=== PATIENT | female | born 1965 | race Two or more races ===

== ENCOUNTER 2022-06-17 10:31 | Emergency (ER) | payer MEDICAID ==
[~2022-06-17] VITALS: Ht 152.4 cm; Wt 57.7 kg
[2022-06-17 10:44] VITALS: BP 159/90
[2022-06-17] MEDS ORDERED: cefTRIAXone SOD 1,000 MG VL IM ONE (11:15)
[2022-06-17] MEDS ORDERED: CLIN300C8 PO (11:17)
[2022-06-17] MEDS ORDERED: MAGN400S25 PO (11:17)
== END 2022-06-17 11:40 | disposition home or self-care (01) ==
LOC: ER 10:31
DX: L03.211 Cellulitis of face (principal); I10 Essential (primary) hypertension; Z88.1 Allergy status to other antibiotic agents
CPT/HCPCS: 96372; 99283; J0696

== ENCOUNTER 2022-06-23 18:53 | Emergency (ER) | payer MEDICAID ==
[~2022-06-23] VITALS: Ht 154.9 cm; Wt 61.0 kg
[~2022-06-23 18:53] MED LIST: CLIN300C8 PO; MAGN400S25 PO
[2022-06-23 19:10] VITALS: BP 166/109
[2022-06-23] MEDS ORDERED: ASPirin 81 mg TAB PO ONE (19:15)
[2022-06-23 19:27] LABS: Basophils # (auto) 0 10 ^3/uL (0-0.2); Basophils % (auto) 0.9 % (0.0-2.0); Eosinophils # (auto) 0.4 10 ^3/uL (0-0.8); Eosinophils % (auto) 7.5 % (0.0-7.0); Hematocrit 41.8 % (36.0-46.0); Hemoglobin 14.6 g/dL (12.2-16.2); Lymphocytes % (auto) 41.9 % (10.0-50.0); Mean Corpuscular Hemoglobin 32.9 pg (28.0-32.0); Mean Corpuscular Hgb Conc. 34.9 g/dL (32.0-36.0); Mean Corpuscular Volume 94.4 fL (80.0-100.0); Monocytes # (auto) 0.4 10 ^3/uL (0-1.3); Monocytes % (auto) 7.9 % (0.0-12.0); Neutrophils % (auto) 41.8 % (37.0-80.0); Nucleated Red Blood Cells % 0.5 %; Red Blood Cells 4.43 10^6/uL (4.0-5.20); Red Cell Distribution Width 12.4 % (11.8-14.3); White Blood Cell 4.8 10^3/uL (4.4-10.8)
[2022-06-23 19:45] LABS: Albumin 3.7 g/dL (3.4-5.0); Magnesium 2.4 mg/dL (1.6-2.6); Potassium 3.7 mmol/L (3.5-5.1)
[2022-06-23 19:49] LABS: BUN/Creatinine Ratio 18.8; Bilirubin, Total 0.4 mg/dL (0.2-1.0); Total Protein 7.9 g/dL (6.4-8.2)
== END 2022-06-24 20:33 | disposition left against medical advice (07) ==
LOC: ER 18:55
DX: R07.89 Other chest pain (principal); E11.9 Type 2 diabetes mellitus without complications; E78.5 Hyperlipidemia, unspecified; I10 Essential (primary) hypertension; F17.210 Nicotine dependence, cigarettes, uncomplicated
CPT/HCPCS: 36415; 80053; 83735; 84484; 85025; 85379; 93005

== ENCOUNTER 2022-11-05 12:12 | Emergency (ER) | payer MEDICAID ==
[~2022-11-05] VITALS: Ht 154.9 cm; Wt 58.4 kg
[~2022-11-05 12:12] MED LIST changes: +CLIN300C70 PO; -CLIN300C8 PO
[2022-11-05] MEDS ORDERED: ASPI1TAB20 PO (15:07)
[2022-11-05 15:32] VITALS: BP 150/90
== END 2022-11-05 15:35 | disposition home or self-care (01) ==
LOC: ER 12:12
DX: F41.0 Panic disorder [episodic paroxysmal anxiety] (principal); I10 Essential (primary) hypertension; F32.9 Major depressive disorder, single episode, unspecified; E78.5 Hyperlipidemia, unspecified; F17.210 Nicotine dependence, cigarettes, uncomplicated
CPT/HCPCS: 93005

== ENCOUNTER 2022-11-26 19:54 | Emergency (ER) | payer MEDICAID ==
[~2022-11-26] VITALS: Ht 157.5 cm; Wt 72.7 kg
[~2022-11-26 19:54] MED LIST changes: +ASPI1TAB20 PO
[2022-11-26 20:07] VITALS: BP 155/97
== END 2022-11-27 01:00 | disposition left against medical advice (07) ==
LOC: ER 19:54
DX: H92.02 Otalgia, left ear (principal); Z53.21 Procedure and treatment not carried out due to patient leaving prior to being seen by health care provider

== ENCOUNTER 2023-01-16 14:03 | Emergency (ER) | payer MEDICAID ==
[~2023-01-16] VITALS: Ht 165.1 cm; Wt 57.8 kg
[~2023-01-16 14:03] MED LIST changes: -ASPI1TAB20 PO
[2023-01-16 14:38] VITALS: BP 136/85; PULSE 94; RESP 16; TEMP 98.2; O2SAT 100
[2023-01-16] MEDS ORDERED: IBUP-1454 PO (15:33)
[2023-01-16] MEDS ORDERED: AMOX875T3 PO (15:33)
== END 2023-01-16 15:45 | disposition home or self-care (01) ==
LOC: ER 14:03
DX: H61.22 Impacted cerumen, left ear (principal); H66.92 Otitis media, unspecified, left ear; I10 Essential (primary) hypertension; F32.9 Major depressive disorder, single episode, unspecified; E78.5 Hyperlipidemia, unspecified; F17.210 Nicotine dependence, cigarettes, uncomplicated; Z79.1 Long term (current) use of non-steroidal anti-inflammatories (NSAID); Z79.899 Other long term (current) drug therapy
CPT/HCPCS: 69209

== ENCOUNTER 2023-04-09 09:04 | Emergency (ER) | payer MEDICAID ==
[~2023-04-09] VITALS: Ht 165.1 cm; Wt 72.3 kg
[~2023-04-09 09:04] MED LIST changes: +AMOX875T3 PO; +IBUP-1454 PO
[2023-04-09 10:46] LABS: Basophils # (auto) 0 10 ^3/uL (0-0.2); Eosinophils # (auto) 0.1 10 ^3/uL (0-0.8); Hemoglobin 14.4 g/dL (12.2-16.2); Lymphocytes # (auto) 0.8 10 ^3/uL (0.4-5.4); Monocytes # (auto) 0.3 10 ^3/uL (0-1.3); Neutrophils # (auto) 2.9 10 ^3/uL (1.6-8.6)
[2023-04-09 10:48] LABS: Alanine Aminotransferase 49 U/L (7-40); Albumin 4.1 g/dL (3.2-4.8); Alkaline Phosphatase 168 U/L (46-116); Anion Gap 7 (5-15); Aspartate Aminotransferase 84 U/L (13-40); BUN/Creatinine Ratio 14.9 (10.0-20.0); Blood Urea Nitrogen 11 mg/dL (9-23); Calcium 9.2 mg/dL (8.7-10.4); Carbon Dioxide 25 mmol/L (20-30); Chloride 105 mmol/L (98-107); Glucose 97 mg/dL (74-106); Lipase 242 U/L (12-53); Magnesium 1.6 mg/dL (1.6-2.6); Potassium 3.4 mmol/L (3.5-5.1); Sodium 137 mmol/L (136-145)
[2023-04-09 10:49] LABS: Basophils % (auto) 0.5 % (0.0-2.0); Bilirubin, Total 0.8 mg/dL (0.2-1.0); Eosinophils % (auto) 2.5 % (0.0-7.0); Hematocrit 41.7 % (36.0-46.0); Lymphocytes % (auto) 19.4 % (10.0-50.0); Mean Corpuscular Hemoglobin 34.4 pg (28.0-32.0); Mean Corpuscular Hgb Conc. 34.6 g/dL (32.0-36.0); Mean Corpuscular Volume 99.3 fL (80.0-100.0); Monocytes % (auto) 6.4 % (0.0-12.0); Neutrophils % (auto) 71.2 % (37.0-80.0); Red Cell Distribution Width 12.2 % (11.8-14.3); Total Protein 7.1 g/dL (5.7-8.2)
[2023-04-09 10:57] LABS: INR 1.05 (0.9-1.15)
[2023-04-09 11:00] VITALS: BP 152/90; PULSE 77; RESP 16; TEMP 97.4; O2SAT 100
[2023-04-09] MEDS ORDERED: NAPR-1334 PO (11:16)
== END 2023-04-09 11:45 | disposition home or self-care (01) ==
LOC: ER 09:04 → EDBD 09:04 → ER 11:45
DX: S30.0XXA Contusion of lower back and pelvis, initial encounter (principal); S20.20XA Contusion of thorax, unspecified, initial encounter; I10 Essential (primary) hypertension; E78.5 Hyperlipidemia, unspecified; F17.210 Nicotine dependence, cigarettes, uncomplicated; V03.99XA Pedestrian with other conveyance injured in collision with car, pick-up truck or van, unspecified whether traffic or nontraffic accident, initial encounter; Y93.89 Activity, other specified; Y92.89 Other specified places as the place of occurrence of the external cause; Y99.8 Other external cause status
CPT/HCPCS: 36415; 70450; 72125; 72128; 72131; 74176; 80053; 83690; 83735; 85025; 85610

== ENCOUNTER 2023-12-22 13:00 | Emergency (ER) | payer SELFPAY ==
[~2023-12-22] VITALS: Ht 157.5 cm; Wt 68.2 kg
[~2023-12-22 13:00] MED LIST changes: +CLIN1CAP70 PO; -CLIN300C70 PO; +NAPR-1335 PO
[2023-12-22 14:24] LABS: Basophils # (auto) 0.1 10 ^3/uL (0-0.2); Eosinophils # (auto) 0.2 10 ^3/uL (0-0.8); Eosinophils % (auto) 3.9 % (0.0-7.0); Hemoglobin 14.6 g/dL (12.2-16.2); Lymphocytes # (auto) 1.5 10 ^3/uL (0.4-5.4); Monocytes # (auto) 0.3 10 ^3/uL (0-1.3); White Blood Cell 4.3 10^3/uL (4.4-10.8)
[2023-12-22 14:26] LABS: Basophils % (auto) 1.3 % (0.0-2.0); Hematocrit 41.3 % (36.0-46.0); Lymphocytes % (auto) 34.2 % (10.0-50.0); Mean Corpuscular Hemoglobin 35.2 pg (28.0-32.0); Mean Corpuscular Hgb Conc. 35.4 g/dL (32.0-36.0); Mean Corpuscular Volume 99.4 fL (80.0-100.0); Monocytes % (auto) 7.9 % (0.0-12.0); Neutrophils # (auto) 2.2 10 ^3/uL (1.6-8.6); Neutrophils % (auto) 52.7 % (37.0-80.0); Nucleated Red Blood Cells % 0.1 %; Red Blood Cells 4.16 10^6/uL (4.0-5.20); Red Cell Distribution Width 13.2 % (11.8-14.3)
[2023-12-22 14:32] LABS: Chloride 109 mmol/L (98-107); Potassium 3.5 mmol/L (3.5-5.1); Sodium 139 mmol/L (136-145)
[2023-12-22 14:33] LABS: Anion Gap 10 (5-15); Carbon Dioxide 20 mmol/L (20-30)
[2023-12-22 14:34] LABS: Calcium 9.1 mg/dL (8.7-10.4)
[2023-12-22 14:38] LABS: Glucose 90 mg/dL (74-106)
[2023-12-22 14:39] LABS: BUN/Creatinine Ratio 23.7 (10.0-20.0); Blood Urea Nitrogen 18 mg/dL (9-23)
[2023-12-22] MEDS: SODIUM CHLORIDE 0.9% 500 ML IV ONE (15:00)
[2023-12-22] MEDS: chlordiazePOXIDE HCL 5 MG CAP PO ONE (15:01)
[2023-12-22 15:15] VITALS: BP 118/70; PULSE 76; RESP 15; TEMP 97; O2SAT 97
[2023-12-22] MEDS ORDERED: FOLIC ACID 1 MG, MAGNESIUM SULF SDV 50% 8 MEQ, MULTIPLE VITAMIN 10 ML, THIAMINE INJ 100... INJ SCH (18:00)
== END 2023-12-24 07:56 | disposition left against medical advice (07) ==
LOC: ER 13:00 → EDBD 13:00 → ER 12-24 07:56
DX: F10.139 Alcohol abuse with withdrawal, unspecified (principal); E78.5 Hyperlipidemia, unspecified; I10 Essential (primary) hypertension; F17.210 Nicotine dependence, cigarettes, uncomplicated; Z79.899 Other long term (current) drug therapy; Z79.1 Long term (current) use of non-steroidal anti-inflammatories (NSAID); Y90.1 Blood alcohol level of 20-39 mg/100 ml
CPT/HCPCS: 36415; 80048; 84484; 85025; 96360; 99284; J7040

== ENCOUNTER 2024-05-24 14:15 | Emergency (ER) | payer MEDICAID ==
[~2024-05-24] VITALS: Ht 154.9 cm; Wt 54.5 kg
[2024-05-24 14:35] VITALS: BP 142/80; PULSE 110; RESP 18; O2SAT 96
== END 2024-05-24 17:04 | disposition left against medical advice (07) ==
LOC: ER 14:15
DX: F41.0 Panic disorder [episodic paroxysmal anxiety] (principal); F41.9 Anxiety disorder, unspecified; Z53.21 Procedure and treatment not carried out due to patient leaving prior to being seen by health care provider

== ENCOUNTER 2024-10-27 14:34 | Emergency (ER) | payer MEDICAID ==
[~2024-10-27] VITALS: Ht 152.4 cm; Wt 54.6 kg
[2024-10-27 14:46] VITALS: BP 148/87; PULSE 90; RESP 18; TEMP 97.5; O2SAT 97
--- NOTE | 2024-10-27 15:22 | ED.PDOC ---
History of Present Illness HPI Comments 58-year-old female presents with a chief complaint of anxiety and memory issues. Patient states that she does methamphetamine and since using that she has been having anxiety and memory issues. Patient has no pain at this time. Patient denies any other symptoms at this time. Chief Complaint: Anxiety Time Seen by MD: 15:12 Primary Care Provider: GALI Rosen Notes: Nurses Notes, Medications, Allergies Allergies: Coded Allergies: NO KNOWN ALLERGIES (Unverified , 06/17/22) Home Meds Active Scripts Naproxen Sodium (Naproxen) 220 Mg Tab, 220 MG PO BID for 7 Days, #14 TAB Prov:MIGUEL ÁNGEL MONROE MD 04/09/23 Ibuprofen (Ibuprofen) 600 Mg Tab, 1 TAB PO TID, #30 TAB Prov:KELLEE BAILEY 01/16/23 Amoxicillin Trihydrate (Amoxicillin) 875 Mg Tab, 1 TAB PO BID, #20 TAB Prov:KELLEE BAILEY 01/16/23 Magnesium Hydroxide (Milk Of Magnesia) 400 Mg/5 Ml Racheal, 400 MG PO DAILY PRN, #769 ML 0 Refills Prov:MARJ HERNANDEZ [facility] 06/17/22 Clindamycin Hcl (Clindamycin Hcl) 300 Mg Cap, 1 CAP PO TID for 7 Days, #21 CAP 0 Refills Prov:MARJ HERNANDEZ 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 Family History Family History: Reviewed,noncontributory to illness, No family hx of Cancer, No family hx of DM, No family hx of Heart bere Social History Smoker: Cigarettes Alcohol: Heavy Drugs: Methamphetamine Lives In: Home Constitutional: denies: chills, diaphoresis, fatigue, fever, malaise, sweats, weakness, others EENTM: denies: blurred vision, double vision, ear bleeding, ear discharge, ear drainage, ear pain, ear ringing, eye pain, eye redness, hearing loss, mouth pain, mouth swelling, nasal discharge, nose bleeding, nose congestion, nose pain, photophobia, tearing, throat pain, throat swelling, voice changes, others Respiratory: denies: cough, hemoptysis, orthopnea, SOB at rest, shortness of breath, SOB with excertion, stridor, wheezing, others Cardiovascular: denies: chest pain, dizzy spells, diaphoresis, Dyspnea on exertion, edema, irregular heart beat, left arm pain, lightheadedness, palpitations, PND, syncope, others Gastrointestinal: denies: abdomen distended, abdominal pain, blood streaked bowels, constipated, diarrhea, dysphagia, difficulty swallowing, hematemesis, melena, nausea, poor appetite, poor fluid intake, rectal bleeding, rectal pain, vomiting, others Genitourinary: denies: abnormal vagina bleeding, burning, dyspareunia, dysuria, flank pain, frequency, hematuria, incontinence, pain, , vagina discharge, urgency, others Neurological: denies: dizziness, fainting, headache, left sided numbness, left sided weakness, numbness, paresthesia, pre-existing deficit, right sided numbness, right sided weakness, seizure, speech problems, tingling, tremors, weakness, others Musculoskeletal: denies: back pain, gout, joint pain, joint swelling, muscle pain, muscle stiffness, neck pain, others Integumetry: denies: bruises, change in color, change in hair/nails, dryness, laceration, lesions, lumps, rash, wounds, others Allergic/Immunocompromised: denies: Difficulty Healing, Frequent Infections, Hives, Itching, others Hematologic/Lymphatic: denies: anemia, blood clots, easy bleeding, easy bruising, swollen glands, others Endocrine: denies: excessive hunger, excessive sweating, excessive thirst, excessive urination, flushing, intolerance to cold, intolerance to heat, unex plained weight gain, unexplained weight loss, others Psychiatric: reports: anxiety; denies: bipolar disorder, depression, hopeless, panic disorder, schizophrenia, sleepless, suicidal, others All Other Systems: Reviewed and Negative Physical Exam General Appearance: No Apparent Distress HEENT: Normal ENT Inspection, Pharynx Normal, TMs Normal Neck: Full Range of Motion, Non-Tender, Normal, Normal Inspection Respiratory: Chest Non-Tender, Lungs Clear, No Accessory Muscle Use, No Respiratory Distress, Normal Breath Sounds Cardiovascular: No Edema, No JVD, No Murmur, No Gallop, Normal Peripheral Pulses, Regular Rate/Rhythm Breast Exam: Deferred Gastrointestinal: No Organomegaly, Non Tender, No Pulsatile Mass, Normal Bowel Sounds, Soft Genitalia: Deferred Pelvic: Deferred Rectal: Deferred Extremities: No calf tenderness, Normal capillary refill, Normal inspection, Normal range of motion, Non-tender, No pedal edema Musculoskeletal : Apperance: Normal Neurologic: Alert, braille typist II-XII nml as Tested, No Motor Deficits, No Sensory Deficits, Other (The patient is anxious and admits to using methamphetamines) Cerebellar Function: Normal Reflexes: Normal Skin: Dry, Normal Color, Warm Lymphatic: No Adenopathy Was a procedure done? Was a procedure done?: No Differential Dx Considerations may include: Acute anxiety, substance abuse X-Ray, Labs, Meds, VS Vital Signs Date Time Temp Pulse Resp B/P (MAP) Pulse Ox O2 Delivery O2 Flow Rate FiO2 10/27/24 14:46 97.5 90 18 148/87 (107) 97 97.5 The patient will be discharged The patient will follow up with the primary care doctor The patient will return to the emergency department's condition worsens. Time of 1ST Reevaluation: 15:42 Reevaluation 1ST: Unchanged Patient Education/Counseling: Diagnosis, Treatment, Prognosis, Need For Follow Up Family Education/Counseling: No Family Present Departure 1 Departure Time of Disposition: 16:35 Impression: Primary Impression: Alcohol abuse Additional Impressions: Methamphetamine use Acute anxiety Disposition: 01 HOME / SELF CARE / HOMELESS Condition: Fair Discharged With: Self Critical Care Note Critical Care Time?: No Stability Stability form required: No Heart Score Heart Score: Heart Score Response (Comments) Value History N/A 0 EKG N/A 0 Age N/A 0 Risk Factors N/A 0 Troponin N/A 0 Total 0 I personally scribed for CONTRERAS WOLFE MD ([email or web address]) on 10/27/24 at 15:21. Electronically submitted by Gunnar Arteaga ([email or web address]). CONTRERAS WOLFE MD October 27, 2024 15:21
== END 2024-10-27 17:38 | disposition home or self-care (01) ==
LOC: ER 14:41
DX: F10.10 Alcohol abuse, uncomplicated (principal); F19.90 Other psychoactive substance use, unspecified, uncomplicated; F41.9 Anxiety disorder, unspecified; F17.210 Nicotine dependence, cigarettes, uncomplicated; F32.A Depression, unspecified; E78.5 Hyperlipidemia, unspecified; I10 Essential (primary) hypertension; Y90.9 Presence of alcohol in blood, level not specified; Z79.1 Long term (current) use of non-steroidal anti-inflammatories (NSAID); Z79.899 Other long term (current) drug therapy

== ENCOUNTER 2024-11-22 15:09 | Emergency (ER) | payer MEDICAID ==
[~2024-11-22] VITALS: Ht 165.1 cm; Wt 79.5 kg
--- NOTE | 2024-11-22 15:36 | ED.PDOC ---
[place]. trauma (HPI) HPI Comments 59 year old female presents to the ED with a chief complaint of neck pain s/p fall onset yesterday (11/21/24). Per EMS, patient fell in a ditch, found patient in the ditch, was transported to [facility]. Patient was diagnosed with C-6 fracture, was discharged today, has discharge paperwork in hand. Patient was transported home, few minutes after called 911 requesting to be sent to an ED. Upon ED arrival, patient has a c-collar in place, facial swelling causing her the inability to open her eyes, she is A&O x3. Patient states she feels like she should have not been discharged from [facility]. PMHx bipolar disorder, depression, HLD, HTN. No other symptoms or modifying f actors present at this time. Chief Complaint: Neck Pain Time Seen by MD: 15:20 Primary Care Provider: GALI Rosen notes: Medications, Allergies Allergies: Coded Allergies: NO KNOWN ALLERGIES (Unverified , 06/17/22) Home Meds Active Scripts Naproxen Sodium (Naproxen) 220 Mg Tab, 220 MG PO BID for 7 Days, #14 TAB Prov:MIGUEL ÁNGEL MONROE MD 04/09/23 Ibuprofen (Ibuprofen) 600 Mg Tab, 1 TAB PO TID, #30 TAB Prov:KELLEE BAILEY 01/16/23 Amoxicillin Trihydrate (Amoxicillin) 875 Mg Tab, 1 TAB PO BID, #20 TAB Prov:KELLEE BAILEY 01/16/23 Magnesium Hydroxide (Milk Of Magnesia) 400 Mg/5 Ml Racheal, 400 MG PO DAILY PRN, #769 ML 0 Refills Prov:MARJ HERNANDEZ 06/17/22 Clindamycin Hcl (Clindamycin Hcl) 300 Mg Cap, 1 CAP PO TID for 7 Days, #21 CAP 0 Refills Prov:MARJ HERNANDEZ 06/17/22 Information Source: Patient, Emergency Med Personnel Mode of Arrival: EMS Severity: Moderate Timing: Hours Duration: Since onset Prehospital treatment: C-Collar Location: Face Mechanism: Fall Past Medical History PAST MEDICAL HISTORY: Depression, High Lipids, HTN Past Medical History (Other): bipolar disorder Surgical History: Denies all surgeries 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 Family History Family History: Reviewed,noncontributory to illness, No family hx of Cancer, No family hx of DM, No family hx of Heart bere Social History Smoker: Cigarettes Alcohol: Heavy Drugs: Methamphetamine Lives In: Home Constitutional: denies: chills, diaphoresis, fatigue, fever, malaise, sweats, weakness, others EENTM: reports: others (facial swelling); denies: blurred vision, double vision, ear bleeding, ear discharge, ear drainage, ear pain, ear ringing, eye pain, eye redness, hearing loss, mouth pain, mouth swelling, nasal discharge, nose bleeding, nose congestion, nose pain, photophobia, tearing, throat pain, throat swelling, voice changes Respiratory: denies: cough, hemoptysis, orthopnea, SOB at rest, shortness of breath, SOB with excertion, stridor, wheezing, others Cardiovascular: denies: chest pain, dizzy spells, diaphoresis, Dyspnea on exertion, edema, irregular heart beat, left arm pain, lightheadedness, palpitations, PND, syncope, others Gastrointestinal: denies: abdomen distended, abdominal pain, blood streaked bowels, constipated, diarrhea, dysphagia, difficulty swallowing, hematemesis, melena, nausea, poor appetite, poor fluid intake, rectal bleeding, rectal pain, vomiting, others Genitourinary: denies: abnormal vagina bleeding, burning, dyspareunia, dysuria, flank pain, frequency, hematuria, incontinence, pain, , vagina discharge, urgency, others Neurological: reports: headache; denies: dizziness, fainting, left sided numbness, left sided weakness, numbness, paresthesia, pre-existing deficit, right sided numbness, right sided weakness, seizure, speech problems, tingling, tremors, weakness, others Musculoskeletal: reports: neck pain; denies: back pain, gout, joint pain, joint swelling, muscle pain, muscle stiffness, others Integumetry: denies: bruises, change in color, change in hair/nails, dryness, laceration, lesions, lumps, rash, wounds, others Allergic/Immunocompromised: denies: Difficulty Healing, Frequent Infections, H antonette, Itching, others Hematologic/Lymphatic: denies: anemia, blood clots, easy bleeding, easy bruising, swollen glands, others Endocrine: denies: excessive hunger, excessive sweating, excessive thirst, excessive urination, flushing, intolerance to cold, intolerance to heat, unexplained weight gain, unexplained weight loss, others Psychiatric: denies: anxiety, bipolar disorder, depression, hopeless, panic disorder, schizophrenia, sleepless, suicidal, others All Other Systems: Reviewed and Negative Physical Exam General Appearance: Moderate Distress, Normal HEENT: Other (facial swelling noted) Neck: Other (c-collar in place) Respiratory: Chest Non-Tender, Lungs Clear, No Accessory Muscle Use, No Respi ratory Distress, Normal Breath Sounds Cardiovascular: No Edema, No JVD, No Murmur, No Gallop, Normal Peripheral Pulses, Regular Rate/Rhythm Breast Exam: Deferred Gastrointestinal: No Organomegaly, Non Tender, No Pulsatile Mass, Normal Bowel Sounds, Soft Genitalia: Deferred Pelvic: Deferred Rectal: Deferred Extremities: No calf tenderness, Normal capillary refill, No pedal edema, Other (no deformity noted) Musculoskeletal : Apperance: Normal Neurologic: Alert, project control manager II-XII nml as Tested, No Motor Deficits, Normal Affect, Normal Mood, No Sensory Deficits Cerebellar Function: Normal Reflexes: Normal Skin: Dry, Normal Color, Warm Lymphatic: No Adenopathy Was a procedure done? Was a procedure done?: No X-Ray, Labs, Meds, VS Vital Signs Date Time Temp Pulse Resp B/P (MAP) Pulse Ox O2 Delivery O2 Flow Rate FiO2 11/22/24 19:00 74 14 145/95 (112) 11/22/24 18:00 88 22 157/83 (107) 11/22/24 17:36 98.0 78 15 159/91 (113) 97 98.0 11/22/24 17:36 78 15 97 Room Air* 0 N/A Nasal Cannula* 11/22/24 16:57 104 18 98 Room Air* 0 21 11/22/24 15:10 98.0 106 20 133/93 (106) 96 98.0 Lab Test 11/22/24 18:19 11/22/24 15:43 Range/Units Urine Color Yellow Yellow Urine Clarity Clear Clear Urine pH 6.5 5.0-9.0 Urine Specific Yoder 1.050 H 1.001-1.035 Urine Protein Trace H Negative Urine Ketones 1+ H Negative Urine Blood Negative Negative /uL Urine Nitrite 2+ H Negative Urine Bilirubin Negative Negative Urine Urobilinogen Normal Negative mg/dL Urine Leukocyte Esterase 1+ Negative /uL Urine RBC 3 0 - 4 /hpf Urine Microscopic WBC 18 H 0-5 /HPF Urine Squamous Epithelial Cells Few <5 /hpf Urine Bacteria None seen None Seen /hpf Urine Mucus Few None Seen Urine Glucose Normal Normal mg/dL Urine Opiates Screen Neg NEGATIVE Urine Fentanyl Screen Neg NEGATIVE Urine Barbiturates Screen Neg NEGATIVE Urine Phencyclidine Screen Neg NEGATIVE Urine Amphetamines Screen Pos NEGATIVE Urine Benzodiazepines Screen Neg NEGATIVE Urine Cocaine Screen Neg NEGATIVE Urine Cannabinoids Screen Neg NEGATIVE White Blood Count 4.4 4.4-10.8 10^3/uL Red Blood Count 4.04 4.0-5.20 10^6/uL Hemoglobin 13.9 12.2-16.2 g/dL Hematocrit 39.9 36.0-46.0 % Mean Corpuscular Volume 98.7 80.0-100.0 fL Mean Corpuscular Hemoglobin 34.3 H 28.0-32.0 pg Mean Corpuscular Hemoglobin Concent 34.7 32.0-36.0 g/dL Red Cell Distribution Width 12.3 11.8-14.3 % Platelet Count 131 L 140-450 10^3/uL Mean Platelet Volume 8.0 6.9-10.8 fL Neutrophils (%) (Auto) 66.5 37.0-80.0 % Lymphocytes (%) (Auto) 20.5 10.0-50.0 % Monocytes (%) (Auto) 10.0 0.0-12.0 % Eosinophils (%) (Auto) 2.4 0.0-7.0 % Basophils (%) (Auto) 0.6 0.0-2.0 % Neutrophils # (Auto) 2.9 1.6-8.6 10 ^3/uL Lymphocytes # (Auto) 0.9 0.4-5.4 10 ^3/uL Monocytes # (Auto) 0.4 0-1.3 10 ^3/uL Eosinophils # (Auto) 0.1 0-0.8 10 ^3/uL Basophils # (Auto) 0 0-0.2 10 ^3/uL Nucleated Red Blood Cells 0.2 % Sodium Level 137 136-145 mmol/L Potassium Level 3.7 3.5-5.1 mmol/L Chloride Level 103 98-107 mmol/L Carbon Dioxide Level 25 20-31 mmol/L Anion Gap 9 5-15 Blood Urea Nitrogen 11 9-23 mg/dL Creatinine 0.71 0.550-1.02 mg/dL Glomerular Filtration Rate Calc 98 >90 mL/min BUN/Creatinine Ratio 15.5 10.0-20.0 Serum Glucose 118 H 74-106 mg/dL Calcium Level 9.9 8.7-10.4 mg/dL Ammonia 26 11-32 umol/L Plasma/Serum Blood Alcohol < 3.0 <10 mg/dL X-Ray, Labs, Meds, VS Comment Spoke with at [facility]. He states that patient AMA made this morning Patient was initially seen at [facility] and transferred to [facility], [facility] states that they were planning to admit for observation Incidental urinary tract infection found, patient given Rocephin 1 g Patient pending transfer to [facility] ACLS Time of 1ST Reevaluation: 15:50 Reevaluation 1ST: Unchanged Patient Education/Counseling: Diagnosis, Treatment, Prognosis Family Education/Counseling: No Family Present Departure 1 Departure Time of Disposition: 19:50 Impression: Primary Impression: Urinary tract infection Qualified Codes: N30.00 - Acute cystitis without hematuria Additional Impressions: Traumatic injury of head Qualified Codes: S09.90XA - Unspecified injury of head, initial encounter Cervical spine fracture Qualified Codes: S12.101A - Unspecified nondisplaced fracture of second cervical vertebra, initial encounter for closed fracture Disposition: 02 SHORT TERM HOSPITAL Condition: Stable Critical Care Note Critical Care Time?: No Stability Stability form required: No Heart Score Heart Score: Heart Score Response (Comments) Value History N/A 0 EKG N/A 0 Age N/A 0 Risk Factors N/A 0 Troponin N/A 0 Total 0 I personally scribed for MICHELE MONTEJO ([email or web address]) on 11/22/24 at 15:36. Electronically submitted by Angelia Orantes ([email or web address]). MICHELE MONTEJO Nov 22, 2024 15:36
[2024-11-22 16:07] LABS: Basophils # (auto) 0 10 ^3/uL (0-0.2); Eosinophils # (auto) 0.1 10 ^3/uL (0-0.8); Lymphocytes # (auto) 0.9 10 ^3/uL (0.4-5.4); Monocytes # (auto) 0.4 10 ^3/uL (0-1.3); Nucleated Red Blood Cells % 0.2 %
[2024-11-22 16:08] LABS: Basophils % (auto) 0.6 % (0.0-2.0); Eosinophils % (auto) 2.4 % (0.0-7.0); Hematocrit 39.9 % (36.0-46.0); Hemoglobin 13.9 g/dL (12.2-16.2); Lymphocytes % (auto) 20.5 % (10.0-50.0); Mean Corpuscular Hemoglobin 34.3 pg (28.0-32.0); Mean Corpuscular Hgb Conc. 34.7 g/dL (32.0-36.0); Mean Corpuscular Volume 98.7 fL (80.0-100.0); Neutrophils # (auto) 2.9 10 ^3/uL (1.6-8.6); Neutrophils % (auto) 66.5 % (37.0-80.0); Platelet Count (auto) 131 10^3/uL (140-450); Red Blood Cells 4.04 10^6/uL (4.0-5.20); Red Cell Distribution Width 12.3 % (11.8-14.3); White Blood Cell 4.4 10^3/uL (4.4-10.8)
[2024-11-22 16:15] LABS: Chloride 103 mmol/L (98-107); Potassium 3.7 mmol/L (3.5-5.1); Sodium 137 mmol/L (136-145)
[2024-11-22 16:16] LABS: Anion Gap 9 (5-15); Calcium 9.9 mg/dL (8.7-10.4); Carbon Dioxide 25 mmol/L (20-31)
[2024-11-22 16:21] LABS: BUN/Creatinine Ratio 15.5 (10.0-20.0); Blood Urea Nitrogen 11 mg/dL (9-23)
[2024-11-22 16:28] LABS: Blood Alcohol < 3.0 mg/dL (<10); Glucose 118 mg/dL (74-106)
--- NOTE | 2024-11-22 16:40 | DVH ---
EXAM: CT HEAD WITHOUT CONTRAST INDICATION: head injury TECHNIQUE: CT of the head without intravenous contrast. Radiation Dose : 1. Head: CT Dose: CTDI volume is 54 mGy. Dose-length product is 971 mGy*cm The dose indicators for CT are the volume Computed Tomography (CT) Dose Index (CTDIvol) and the Dose Length Product (DLP), and are measured in units of mGy and mGy-cm, respectively. These indicators are not patient dose, but values generated from the CT scanner acquisition factors. The report includes radiation exposure data for exposures received during this examination. COMPARISON: CT HEAD WITHOUT CONTRAST on DOS: 04/09/23 FINDINGS: There is no evidence of acute intracranial hemorrhage, extra-axial collection, mass effect, midline s hift, herniation or hydrocephalus. The ventricles, sulci and cisterns are age appropriate. The garcia-white differentiation is intact. Patchy periventricular and subcortical white matter hypoattenuation is nonspecific but may be related to small vessel ischemic disease. The visualized paranasal sinuses and mastoid air cells are clear. The surrounding soft tissues and osseous structures are unremarkable. IMPRESSION: 1. No acute intracranial abnormality. Radiation optimization: All CT scans at this facility use at least one of these dose optimization alex hniques: automated exposure control mA and/or kV adjustment per patient size (includes targeted exam s where dose is matched to clinical indication) or iterative reconstruction.
--- NOTE | 2024-11-22 16:51 | DVH ---
EXAM: CT CERVICAL WITHOUT CONTRAST HISTORY: head injury COMPARISON: CT CERVICAL WITHOUT CONTRAST on DOS: 04/09/23 CTDIvol 21 mGy, DLP 488 mGy*cm. TECHNIQUE: Multiple axial CT images of the spine were obtained using bone algorithm. Axial and sainz l reformatting was done. Bone and soft tissue windows were reviewed. FINDINGS: Since the prior study there has been interval development of a fracture of the base of C2. The fracture is vertically oriented and extends into the disc space at the C2-3 level on sagittal cassy ge 38, series 604. The fracture is well seen on the axial sequences. The fracture extends into the ve rtebral foramen bilaterally. CT angiography and/or MRI angiography is recommended to exclude vertebra l artery injury. In addition MRI study is recommended to exclude injury to the cord. The lamina of C2 is intact. The pillars of C2 are intact. The facets at the C2-3 level are anatomically aligned. No d islocation is seen of the cranial cervical junction. The relationship of the odontoid of the anterio r tubercle C1 is normal. The spinous processes of the cervical spine are intact. There is straighteni ng of the normal cervical lordosis. There is moderate multilevel degenerative disc disease. There is no hemorrhage in the limited portions of the visualized posterior fossa. 4th ventricle is no rmal. No fluid in the mastoid air cells. No infiltrates are seen in the upper lung zones. The central airway appears normal. The larynx is no rmal. IMPRESSION: 1. C2 fracture as discussed above. The fracture extends into the vertebral foramen bilaterally and fu rther assessment with CT angiography and/ or MRI angiography is recommended to exclude vertebral body artery injury. Further assessment with MRI imaging can be performed for further evaluation of the ce rvical cord. Radiology help desk notified to contact referring physician immediately.
[2024-11-22 16:57] VITALS: PULSE 104; RESP 18; O2SAT 98
[2024-11-22 17:36] VITALS: PULSE 78; RESP 15; O2SAT 97
[2024-11-22] MEDS: IOHEXOL 300 MG/ML 100ML BOTTLE IJ ONE (17:56)
[2024-11-22 18:40] LABS: Urine Bacteria None Seen /hpf (None Seen)
[2024-11-22 18:47] LABS: Urine Blood Negative /uL (Negative); Urine Clarity Clear (Clear); Urine Color Yellow (Yellow); Urine Mucus FEW (None Seen); Urine Protein, UAD TRACE (Negative); Urine Squamous Epithelial Cell FEW /hpf (<5); Urine Urobilinogen Normal (Negative); Urine WBC 18 /HPF (0-5); Urine pH 6.5 (5.0-9.0)
--- NOTE | 2024-11-22 18:55 | DVH ---
EXAM: CT CERVICAL WITH CONTRAST HISTORY: cervical fracture COMPARISON: CT CERVICAL WITHOUT CONTRAST on DOS: 11/22/24, CT CERVICAL WITHOUT CONTRAST on DOS: 3 CTDIvol 20.94 mGy, DLP 507.13 mGy*cm. TECHNIQUE: Multiple axial CT images of the spine were obtained using bone algorithm. Axial and sainz l reformatting was done. Bone and soft tissue windows were reviewed. FINDINGS: Multilevel degenerative changes of the spine. No acute subluxation. Redemonstration of minimally displaced fracture of the posterior elements of C2 and C3. Fracture line extends to the transverse foramen. Vertebral arteries are intact. No findings to suggest vascular injury. IMPRESSION: Vertebral arteries are intact. No findings to suggest vascular injury.
[2024-11-22 19:01] LABS: Opiate Scree,Urine Neg (NEGATIVE)
[2024-11-22 19:08] LABS: Amphetamine Screen, Urine Pos (NEGATIVE); Barbiturate Scree,Urine Neg (NEGATIVE); Benzodiazephine Screen, Urine Neg (NEGATIVE); Cannabinoid Screen, Urine Neg (NEGATIVE); Cocaine Screen, Urine Neg (NEGATIVE); Phencyclidine Screen, Urine Neg (NEGATIVE)
[2024-11-22] MEDS: cefTRIAXone SOD 1,000 MG VL IM ONE (19:30)
[2024-11-22 19:55] VITALS: PULSE 84; RESP 18; O2SAT 96
[2024-11-22 20:45] VITALS: BP 121/80; PULSE 78; RESP 18; TEMP 98.1; O2SAT 96
== END 2024-11-22 21:06 | disposition short-term general hospital (02) ==
LOC: ER 15:09 → EDSEX 15:09 → EDBD 15:09 → ER 21:06
DX: S12.100A Unspecified displaced fracture of second cervical vertebra, initial encounter for closed fracture (principal); S09.90XA Unspecified injury of head, initial encounter; N39.0 Urinary tract infection, site not specified; F17.210 Nicotine dependence, cigarettes, uncomplicated; E78.5 Hyperlipidemia, unspecified; F31.9 Bipolar disorder, unspecified; I10 Essential (primary) hypertension; F10.20 Alcohol dependence, uncomplicated; F19.90 Other psychoactive substance use, unspecified, uncomplicated; Z79.1 Long term (current) use of non-steroidal anti-inflammatories (NSAID); Z79.899 Other long term (current) drug therapy; W18.39XA Other fall on same level, initial encounter; Y93.89 Activity, other specified; Y92.89 Other specified places as the place of occurrence of the external cause; Y99.8 Other external cause status; Y90.9 Presence of alcohol in blood, level not specified
CPT/HCPCS: 36415; 70450; 72125; 72126; 80048; 80307; 80320; 81001; 82140; 85025; 96372; 99285; J0696; Q9967

== ENCOUNTER 2024-11-28 00:28 | Emergency (ER) | payer MEDICAID ==
[~2024-11-28] VITALS: Ht 157.5 cm; Wt 63.0 kg
--- NOTE | 2024-11-28 01:25 | ED.PDOC ---
History of Present Illness HPI Comments 59-year-old female brought in by EMS for evaluation of neck pain. Patient has history of methamphetamine and alcohol abuse. Patient is a difficult historian, but states she came to the hospital today to see if I can take this neck brace off. Per our records, patient fell into ditch and was seen at another hospital ([facility]) where she was diagnosed with a cervical fracture. Patient states she was placed in a neck brace and was discharged, but was not told why she needed the neck brace. She presents today wearing an [place] collar. Patient denies any new injury, and is complaining that the anterior/ lateral aspects of her neck are painful. Chief Complaint: General Weakness Time Seen by MD: 01:31 Primary Care Provider: UNKNOWN Reviewed Notes: Nurses Notes Allergies: Coded Allergies: NO KNOWN ALLERGIES (Unverified , 06/17/22) Home Meds Active Scripts Naproxen Sodium (Naproxen) 220 Mg Tab, 220 MG PO BID for 7 Days, #14 TAB Prov:MIGUEL ÁNGEL MONROE MD 04/09/23 Ibuprofen (Ibuprofen) 600 Mg Tab, 1 TAB PO TID, #30 TAB Prov:KELLEE BAILEY 01/16/23 Amoxicillin Trihydrate (Amoxicillin) 875 Mg Tab, 1 TAB PO BID, #20 TAB Prov:KELLEE BAILEY 01/16/23 Magnesium Hydroxide (Milk Of Magnesia) 400 Mg/5 Ml Racheal, 400 MG PO DAILY PRN, #769 ML 0 Refills Prov:MARJ HERNANDEZ 06/17/22 Clindamycin Hcl (Clindamycin Hcl) 300 Mg Cap, 1 CAP PO TID for 7 Days, #21 CAP 0 Refills Prov:MARJ HERNANDEZ 06/17/22 Information Source: Patient Mode of Arrival: EMS Severity: Moderate Timing: Days Duration: Since onset Past Medical History PAST MEDICAL HISTORY: Depression, High Lipids, HTN Surgical History: Denies all surgeries SPRAYER INSECTICIDE History: No Pertinent SPRAYER INSECTICIDE History Family History Family History: Reviewed,noncontributory to illness, No family hx of Cancer, No family hx of DM, No family hx of Heart bere Social History Smoker: Non-Smoker Alcohol: Heavy Drugs: Methamphetamine Lives In: Home Constitutional: denies: chills, diaphoresis, fatigue, fever, malaise, sweats, weakness, others EENTM: denies: blurred vision, double vision, ear bleeding, ear discharge, ear drainage, ear pain, ear ringing, eye pain, eye redness, hearing loss, mouth pain, mouth swelling, nasal discharge, nose bleeding, nose congestion, nose pain, photophobia, tearing, throat pain, throat swelling, voice changes, others Respiratory: denies: cough, hemoptysis, orthopnea, SOB at rest, shortness of breath, SOB with excertion, stridor, wheezing, others Cardiovascular: denies: chest pain, dizzy spells, diaphoresis, Dyspnea on exertion, edema, irregular heart beat, left arm pain, lightheadedness, palpitations, PND, syncope, others Gastrointestinal: denies: abdomen distended, abdominal pain, blood streaked bowels, constipated, diarrhea, dysphagia, difficulty swallowing, hematemesis, melena, nausea, poor appetite, poor fluid intake, rectal bleeding, rectal pain, vomiting, others Genitourinary: denies: abnormal vagina bleeding, burning, dyspareunia, dysuria, flank pain, frequency, hematuria, incontinence, pain, , vagina discharge, urgency, others Neurological: reports: headache; denies: dizziness, fainting, left sided numbness, left sided weakness, numbness, paresthesia, pre-existing deficit, right sided numbness, right sided weakness, seizure, speech problems, tingling, tremors, weakness, others Musculoskeletal: reports: neck pain; denies: back pain, gout, joint pain, joint swelling, muscle pain, muscle stiffness, others Integumetry: denies: bruises, change in color, change in hair/nails, dryness, laceration, lesions, lumps, rash, wounds, others Allergic/Immunocompromised: denies: Difficulty Healing, Frequent Infections, Hives, Itching, others Hematologic/Lymphatic: denies: anemia, blood clots, easy bleeding, easy bruising, swollen glands, others Endocrine: denies: excessive hunger, excessive sweating, excessive thirst, excessive urination, flushing, intolerance to cold, intolerance to heat, unexplained weight gain, unexplained weight loss, others Psychiatric: denies: anxiety, bipolar disorder, depression, hopeless, panic disorder, schizophrenia, sleepless, suicidal, others Physical Exam General Appearance: No Apparent Distress HEENT: Other (Appearing scalp and facial soft tissue swelling. Bilateral conjunctival hemorrhages.) Neck: Other (Mild posterior midline neck tenderness. [place] collar in place.) Respiratory: Lungs Clear, No Accessory Muscle Use, No Respiratory Distress, Normal Breath Sounds Cardiovascular: No Edema, No JVD, Regular Rate/Rhythm Breast Exam: Deferred Gastrointestinal: Non Tender, Soft Genitalia: Deferred Pelvic: Deferred Rectal: Deferred Extremities: Normal inspection, Normal range of motion, Non-tender, No pedal edema Neurologic: Alert (Oriented x4), Normal Affect, Normal Mood, Other (Ambulatory) Cerebellar Function: NOT DONE Reflexes: NOT DONE Skin: Dry, Warm, Other (Facial hyperpigmentation) Lymphatic: NOT DONE Was a procedure done? Was a procedure done?: No Differential Dx Considerations may include: Fracture, subluxation, disc disease, among others muscle X-Ray, Labs, Meds, VS Vital Signs Date Time Temp Pulse Resp B/P (MAP) Pulse Ox O2 Delivery O2 Flow Rate FiO2 11/28/24 00:45 98.0 107 18 140/83 (102) 100 98.0 Lab Test 11/28/24 02:31 Range/Units Sodium Level Pending Potassium Level Pending Chloride Level Pending Carbon Dioxide Level Pending Anion Gap Pending Blood Urea Nitrogen Pending Creatinine Pending Glomerular Filtration Rate Calc Pending BUN/Creatinine Ratio Pending Serum Glucose Pending Calcium Level Pending Total Bilirubin Pending Aspartate Amino Transferase (AST) Pending Alanine Aminotransferase (ALT) Pending Alkaline Phosphatase Pending Total Protein Pending Albumin Pending Plasma/Serum Blood Alcohol Pending PROCEDURE(s): CS2 - CERVICAL WITHOUT CONTRAST REASON: trauma ORDER NUMBER(s): [id number], ACCESSION NUMBER(s): [id number] EXAM: CT CERVICAL WITHOUT CONTRAST HISTORY: trauma COMPARISON: CT CERVICAL WITH CONTRAST on DOS: 11/22/24, CT CERVICAL WITHOUT CONTRAST on DOS: 11/22/24, CT CERVICAL WITHOUT CONTRAST on DOS: 04/09/23 CTDIvol 17.31 mGy, DLP 439.32 mGy*cm. TECHNIQUE: Multiple axial CT images of the spine were obtained using bone algorithm. Axial and coronal reformatting was done. Bone and soft tissue windows were reviewed. FINDINGS: Slight loss of normal cervical lordosis. Slight increased diastasis of fracture of the base of C2 which is vertically oriented and extends into the disc space at the C2-C3 level. Extension rebeka aterally into the vertebral foramina redemonstrated. No CT evidence of spinal dislocation or significant appearing acute subluxation is seen. The visualized paraspinal soft tissues are grossly unremarkable. Multilevel degenerative change including moderate disc height loss at the C4-C5 through C6-C7 levels with adjacent endplate sclerosis redemonstrated. IMPRESSION: 1. 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 2. Degenerative changes otherwise redemonstrated. Critical Result: C2 fracture Findings discussed with DENNIS WATSON at 11/28/2024 05:19 AM, and acknowledged receipt and understanding of the findings. X-Ray, Labs, Meds, VS Comment 59-year-old female with a history of hypertension, dyslipidemia, alcohol and methamphetamine abuse, and recent cervical fracture brought in by EMS requesting to remove her [place] collar. Vitals remarkable for heart rate 107 Exam remarkable for posterior midline neck tenderness with [place] collar in place Rhythm strip independently interpreted by me: Sinus tach, rate 107, no ectopy. CT cervical spine without contrast: IMPRESSION: 1. 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 2. Degenerative changes otherwise redemonstrated. Critical Result: C2 fracture Patient treated with the following in the ED: Toradol 30 mg IM On re-evaluation, patient states pain has improved. Vitals were stable. I discussed be radiology findings with the radiologist. He stated that the C2 fracture appears more diastatic compared to the previous scan dated 11/22/2024. Patient is homeless and has a history of alcohol and methamphetamine abuse. On initial evaluation, she was not even aware that she had a cervical fracture. If discharged, the patient could potentially fall again or remove her collar. Plan is to admit the patient for ortho spine evaluation and possible prison facility placement. Time of 1ST Reevaluation: 01:23 Reevaluation 1ST: Unchanged Patient Education/Counseling: Diagnosis, Treatment Family Education/Counseling: No Family Present SEPSIS Sepsis Screen Date sepsis recognized/suspect: Nov 28, 2024 Time Sepsis recognized/suspect: 0045 Recent Procedure: No On Antibiotic Therapy: No Respiratory Rate >20: No Heart Rate >90: No Temp<36 C (96.8 F) or >38.3 C: No SBP <90 or MAP <65 mmHG: No New Acute Mental Status Change: No Is the patient on CPAP, BIPAP,: No Physician Orders Cervical Without Contrast (11/28/24 01:10) Comprehensive Metabolic Panel (11/28/24 02:23) Basic Metabolic Panel (11/28/24 02:23) Blood Alcohol (11/28/24 02:23) Drug Screen (11/28/24 02:23) Vital Signs Date Time Temp Pulse Resp B/P (MAP) Pulse Ox O2 Delivery O2 Flow Rate FiO2 11/28/24 00:45 98.0 107 18 140/83 (102) 100 98.0 Departure 1 Departure Time of Disposition: 02:27 Impression: Primary Impression: Cervical spine fracture Qualified Codes: S12.100K - Unspecified displaced fracture of second cer vical vertebra, subsequent encounter for fracture with nonunion Disposition: ADMITTED INPATIENT Admit to: Med Surg Condition: Guarded Critical Care Note Critical Care Time?: No Stability Stability form required: No Heart Score Heart Score: Heart Score Response (Comments) Value History N/A 0 EKG N/A 0 Age N/A 0 Risk Factors N/A 0 Troponin N/A 0 Total 0 I personally scribed for DENNIS WATSON MD ([facility]) on 11/28/24 at 01:25. Electronically submitted by Alessio Og ([facility]). I personally scribed for DENNIS WATSON MD ([facility]) on 11/28/24 at 01:31. Electronically submitted by Alessio Og ([facility] [employer] I personally scribed for DENNIS WATSON MD ([facility]) on 11/28/24 at 02:48. Electronically submitted by Alessio Og ([facility]). DENNIS WATSON MD Nov 28, 2024 01:25
--- NOTE | 2024-11-28 02:27 | DVH ---
EXAM: CT CERVICAL WITHOUT CONTRAST HISTORY: trauma COMPARISON: CT CERVICAL WITH CONTRAST on DOS: 11/22/24, CT CERVICAL WITHOUT CONTRAST on DOS: 11/22/24, CT CERVICAL WITHOUT CONTRAST on DOS: 04/09/23 CTDIvol 17.31 mGy, DLP 439.32 mGy*cm. TECHNIQUE: Multiple axial CT images of the spine were obtained using bone algorithm. Axial and coron al reformatting was done. Bone and soft tissue windows were reviewed. FINDINGS: Slight loss of normal cervical lordosis. Slight increased diastasis of fracture of the base of C2 which is vertically oriented and extends int o the disc space at the C2-C3 level. Extension bilaterally into the vertebral foramina redemonstrated . No CT evidence of spinal dislocation or significant appearing acute subluxation is seen. The visuali zed paraspinal soft tissues are grossly unremarkable. Multilevel degenerative change including moderate disc height loss at the C4-C5 through C6-C7 levels with adjacent endplate sclerosis redemonstrated. IMPRESSION: 1. 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 2. Degenerative changes otherwise redemonstrated. Critical Result: C2 fracture Findings discussed with DENNIS WATSON at 11/28/2024 05:19 AM, and acknowledged receipt and understanding of the findings.
[2024-11-28 03:06] LABS: Alanine Aminotransferase 35 U/L (7-40); Albumin 4.3 g/dL (3.2-4.8); Anion Gap 8 (5-15); BUN/Creatinine Ratio 10.8 (10.0-20.0); Blood Alcohol 42.1 mg/dL (<10); Blood Urea Nitrogen 9 mg/dL (9-23); Calcium 9.9 mg/dL (8.7-10.4); Carbon Dioxide 27 mmol/L (20-31); Chloride 104 mmol/L (98-107); Glucose 106 mg/dL (74-106); Potassium 3.9 mmol/L (3.5-5.1); Sodium 139 mmol/L (136-145); Total Protein 7.8 g/dL (5.7-8.2)
[2024-11-28 03:09] LABS: Alkaline Phosphatase 153 U/L (46-116); Aspartate Aminotransferase 63 U/L (<34); Bilirubin, Total 1.2 mg/dL (0.2-1.0)
[2024-11-28 04:15] VITALS: BP 150/86; PULSE 86; RESP 18; TEMP 98.1; O2SAT 97
[2024-11-28] MEDS: KETOROLAC TROMETH 30 MG/ML 1ML VIAL IM ONE (04:17)
[2024-11-28] MEDS ORDERED: hydrALAZINE HCL 20 MG/ML VL IV PRN (07:45)
[2024-11-28 08:03] LABS: Basophils # (auto) 0.1 10 ^3/uL (0-0.2); Eosinophils # (auto) 0.2 10 ^3/uL (0-0.8); Lymphocytes # (auto) 1.4 10 ^3/uL (0.4-5.4)
[2024-11-28 08:06] LABS: Basophils % (auto) 1.2 % (0.0-2.0); Eosinophils % (auto) 3.6 % (0.0-7.0); Hemoglobin 12.3 g/dL (12.2-16.2); Lymphocytes % (auto) 26.2 % (10.0-50.0); Mean Corpuscular Hemoglobin 34.6 pg (28.0-32.0); Mean Corpuscular Hgb Conc. 35.3 g/dL (32.0-36.0); Mean Corpuscular Volume 98.1 fL (80.0-100.0); Monocytes # (auto) 0.7 10 ^3/uL (0-1.3); Nucleated Red Blood Cells % 0.2 %; Platelet Count (auto) 205 10^3/uL (140-450); Red Blood Cells 3.57 10^6/uL (4.0-5.20); Red Cell Distribution Width 12.7 % (11.8-14.3); White Blood Cell 5.4 10^3/uL (4.4-10.8)
== END 2024-11-28 08:53 | disposition left against medical advice (07) ==
LOC: EDBD 00:28 → ER 00:28
DX: S12.100K Unspecified displaced fracture of second cervical vertebra, subsequent encounter for fracture with nonunion (principal); I10 Essential (primary) hypertension; E78.5 Hyperlipidemia, unspecified; F32.A Depression, unspecified; F19.90 Other psychoactive substance use, unspecified, uncomplicated; F10.20 Alcohol dependence, uncomplicated; Z79.899 Other long term (current) drug therapy; Z79.1 Long term (current) use of non-steroidal anti-inflammatories (NSAID); W19.XXXA Unspecified fall, initial encounter; Y93.89 Activity, other specified; Y92.89 Other specified places as the place of occurrence of the external cause; Y99.8 Other external cause status; Y90.2 Blood alcohol level of 40-59 mg/100 ml
CPT/HCPCS: 36415; 72125; 80053; 80320; 85025; 96372; 99285; J1885

== ENCOUNTER 2024-11-28 20:02 | Emergency (ER) | payer MEDICAID ==
[~2024-11-28] VITALS: Ht 157.5 cm; Wt 63.0 kg
[2024-11-28 20:10] VITALS: BP 116/70; PULSE 101; RESP 15; TEMP 98.8; O2SAT 96
--- NOTE | 2024-11-28 20:31 | ED.PDOC ---
SOB-HPI HPI Comments 59y F who presents to the ED via EMS for chief complaint of shortness of breath. Pt was admitted yesterday for same complaint but eloped home to check on her pets. Pt states while at home, she has noticed her family had left her behind and moved to [facility]. Pt states she called EMS this evening as she became emotional, due to her family abandoning her, which made her feel sob. she is no longer short of breath now, that she is here and feels safer and more calm. Pt now in the ED, presents in C-collar and noted to be emotional due to family leaving and moving away. Pt otherwise denies any other symptoms at this time. now she checked on her dogs, she reports that she had lived in a house, which the brass buffer of AIDs and now thre is a person living there who would not let her see her dogs or let her in. she is homeless now and wants placement. she was admitted last night for this purpose, but left Chief Complaint: Shortness of Breath Time Seen by MD: 20:06 Primary Care Provider: UNKNOWN Reviewed notes: Medications, Allergies Information Source: Patient, Emergency Med Personnel Mode of Arrival: EMS Past Medical History PAST MEDICAL HISTORY: Depression, High Lipids, HTN Surgical History: Denies all surgeries PUBLIC WEIGHER History: No Pertinent PUBLIC WEIGHER History Family History Family History: Reviewed,noncontributory to illness, No family hx of Cancer, No family hx of DM, No family hx of Heart bere Social History Smoker: Non-Smoker Alcohol: Heavy Drugs: Methamphetamine Lives In: Home Constitutional: denies: chills, diaphoresis, fatigue, fever, malaise, sweats, weakness, others EENTM: denies: blurred vision, double vision, ear bleeding, ear discharge, ear drainage, ear pain, ear ringing, eye pain, eye redness, hearing loss, mouth pain, mouth swelling, nasal discharge, nose bleeding, nose congestion, nose pain, photophobia, tearing, throat pain, throat swelling, voice changes, others Respiratory: reports: shortness of breath; denies: cough, hemoptysis, orthopnea, SOB at rest, SOB with excertion, stridor, wheezing, others Cardiovascular: denies: chest pain, dizzy spells, diaphoresis, Dyspnea on exertion, edema, irregular heart beat, left arm pain, lightheadedness, palpitations, PND, syncope, others Gastrointestinal: denies: abdomen distended, abdominal pain, blood streaked bowels, constipated, diarrhea, dysphagia, difficulty swallowing, hematemesis, melena, nausea, poor appetite, poor fluid intake, rectal bleeding, rectal pain, vomiting, others Genitourinary: denies: abnormal vagina bleeding, burning, dyspareunia, dysuria, flank pain, frequency, hematuria, incontinence, pain, , vagina discharge, urgency, others Neurological: denies: dizziness, fainting, headache, left sided numbness, left sided weakness, numbness, paresthesia, pre-existing deficit, right sided numbness, right sided weakness, seizure, speech problems, tingling, tremors, weakness, others Musculoskeletal: denies: back pain, gout, joint pain, joint swelling, muscle pain, muscle stiffness, neck pain, others Integumetry: denies: bruises, change in color, change in hair/nails, dryness, laceration, lesions, lumps, rash, wounds, others Allergic/Immunocompromised: denies: Difficulty Healing, Frequent Infections, Hives, Itching, others Hematologic/Lymphatic: denies: anemia, blood clots, easy bleeding, easy bruising, swollen glands, others Endocrine: denies: excessive hunger, excessive sweating, excessive thirst, excessive urination, flushing, intolerance to cold, intolerance to heat, unexplained weight gain, unexplained weight loss, others Psychiatric: denies: anxiety, bipolar disorder, depression, hopeless, panic disorder, schizophrenia, sleepless, suicidal, others All Other Systems: Reviewed and Negative Physical Exam General Appearance: Moderate Distress HEENT: Normal ENT Inspection, Pharynx Normal, TMs Normal Neck: Other (in C-collar) Respiratory: Chest Non-Tender, Lungs Clear, No Accessory Muscle Use, No Respiratory Distress, Normal Breath Sounds Cardiovascular: No Edema, No JVD, No Murmur, No Gallop, Normal Peripheral Pulses, Regular Rate/Rhythm Breast Exam: Deferred Gastrointestinal: No Organomegaly, Non Tender, No Pulsatile Mass, Normal Bowel Sounds, Soft Genitalia: Deferred Pelvic: Deferred Rectal: Deferred Extremities: No calf tenderness, Normal capillary refill, Normal inspection, Normal range of motion, Non-tender, No pedal edema Musculoskeletal : Apperance: Normal Neurologic: Alert, field service representative II-XII nml as Tested, No Motor Deficits, Normal Affect, Normal Mood, No Sensory Deficits Cerebellar Function: Normal Reflexes: Normal Skin: Dry, Normal Color, Warm Lymphatic: No Adenopathy Was a procedure done? Was a procedure done?: No Differential Dx Differential Diagnosis: Asthma, Bronchitis, COPD, Pneumonia, Pulmonary Embolism, Respiratory Distress, Pharyngitis, URI Comments ETOH use, homelessness, X-Ray, Labs, Meds, VS Vital Signs Date Time Temp Pulse Resp B/P (MAP) Pulse Ox O2 Delivery O2 Flow Rate FiO2 11/28/24 20:10 98.8 101 15 116/70 (85) 96 98.8 Time of 1ST Reevaluation: 20:27 (consulted orthopedist/corporate law specialist, , states pt should be kept on c-collar) Reevaluation 1ST: Unchanged Patient Education/Counseling: Diagnosis, Treatment, Prognosis, Need For Follow Up Family Education/Counseling: No Family Present Comments i consulted Dr Meléndez regarding the C2 fracture. his recommendation is to keep the c collar on with no surgical indications. pt will be admitted now for pain control and placement SEPSIS Sepsis Screen Date sepsis recognized/suspect: Nov 28, 2024 Time Sepsis recognized/suspect: 2011 Recent Procedure: No On Antibiotic Therapy: No Respiratory Rate >20: No Heart Rate >90: Yes Temp<36 C (96.8 F) or >38.3 C: No SBP <90 or MAP <65 mmHG: No New Acute Mental Status Change: No Is the patient on CPAP, BIPAP,: No Vital Signs Date Time Temp Pulse Resp B/P (MAP) Pulse Ox O2 Delivery O2 Flow Rate FiO2 11/28/24 20:10 98.8 101 15 116/70 (85) 96 98.8 Departure 1 Departure Time of Disposition: 20:45 Impression: Primary Impression: C2 cervical fracture Qualified Codes: S12.191G - Other nondisplaced fracture of second cervical vertebra, subsequent encounter for fracture with delayed healing Additional Impressions: Facial contusion Qualified Codes: S00.83XD - Contusion of other part of head, subsequent encounter Homeless Substance abuse Disposition: ADMITTED INPATIENT Admit to: Med Surg Condition: Stable Discharged With: Self Critical Care Note Critical Care Time?: No Stability Stability form required: No Heart Score Heart Score: Heart Score Response (Comments) Value History N/A 0 EKG N/A 0 Age N/A 0 Risk Factors N/A 0 Troponin N/A 0 Total 0 I personally scribed for MAGDY RIGGINS MD ([facility]) on 11/28/24 at 20:31. Electronically submitted by Marci Angulo ([facility] MAGDY RIGGINS MD Nov 28, 2024 20:31
== END 2024-11-28 23:51 | disposition left against medical advice (07) ==
LOC: EDBD 20:02 → ER 20:02
DX: S12.190A Other displaced fracture of second cervical vertebra, initial encounter for closed fracture (principal); S00.83XA Contusion of other part of head, initial encounter; I10 Essential (primary) hypertension; F32.A Depression, unspecified; E78.5 Hyperlipidemia, unspecified; F10.20 Alcohol dependence, uncomplicated; F19.90 Other psychoactive substance use, unspecified, uncomplicated; Z59.00 Homelessness unspecified; X58.XXXA Exposure to other specified factors, initial encounter; Y93.89 Activity, other specified; Y92.89 Other specified places as the place of occurrence of the external cause; Y99.8 Other external cause status; Y90.9 Presence of alcohol in blood, level not specified
CPT/HCPCS: 82947

== ENCOUNTER 2024-12-01 18:56 | Emergency (ER) | payer MEDICAID ==
[~2024-12-01] VITALS: Ht 157.5 cm; Wt 54.6 kg
--- NOTE | 2024-12-01 19:27 | ECG ---
[facility] Test Date: 2024-12-01 Test Time: 19:11:36 Pat Name: IVAN SPANN Department: ER Room: Gender: F Spear Fisher: : 1965 Requested By: MICHELE MONTEJO Order Number: [id number] Reading MD: Jorge Cam Measurements Intervals [place] Rate: 96 P: 27 GA: 187 QRS: 6 QRSD: 97 T: 75 QT: 346 QTc: 438 Interpretive Statements Sinus rhythm Electronically Signed On 12-03-2024 10:23:29 PDT by Jorge Cam Please click the below link to view image of tracing.
--- NOTE | 2024-12-01 19:51 | DVH ---
EXAM: XY CHEST TWO VIEWS ROUTINE TECHNIQUE: Two radiographic views of the chest CLINICAL HISTORY: SOB COMPARISON: None Findings/Impression: Frontal and lateral chest radiographs demonstrate no acute osseous or superficial soft tissue abnorma lities. The trachea is midline. The cardiac silhouette and mediastinum are within normal limits. No pneumothorax, pleural effusions, or consolidations.
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
[2024-12-01 22:13] VITALS: BP 143/87; PULSE 95; RESP 18; TEMP 98; O2SAT 98
== END 2024-12-01 22:19 | disposition home or self-care (01) ==
LOC: ER 18:56
DX: S00.83XA Contusion of other part of head, initial encounter (principal); S12.101D Unspecified nondisplaced fracture of second cervical vertebra, subsequent encounter for fracture with routine healing; R06.02 Shortness of breath; I10 Essential (primary) hypertension; E78.5 Hyperlipidemia, unspecified; F32.A Depression, unspecified; V89.2XXA Person injured in unspecified motor-vehicle accident, traffic, initial encounter; Y93.I9 Activity, other involving external motion; Y92.488 Other paved roadways as the place of occurrence of the external cause; Y99.8 Other external cause status
CPT/HCPCS: 71046; 93005

== ENCOUNTER 2024-12-10 16:47 | Emergency (ER) | payer MEDICAID ==
[~2024-12-10] VITALS: Ht 152.4 cm; Wt 51.9 kg
[2024-12-10 17:28] VITALS: BP 100/64; PULSE 103; RESP 18; TEMP 99; O2SAT 95
--- NOTE | 2024-12-10 18:56 | ED.PDOC ---
HPI (NEURO) HPI Comments PATIENT REPORTS HEADACHE X 2 WEEKS. PATIENT DESCRIBES PAIN 9/10 IN THE BACK OF HER HEAD. PATIENT DENIES INJURY TO THE HEAD. PATIENT ALSO DENIES VISION CHANGES, DENIES N/V. Chief Complaint: Headache Time Seen by MD: 18:03 Primary Care Provider: GRACIA Rosen Notes: Nurses Notes, Medications, Allergies Information Source: Patient Mode of Arrival: Ambulatory Past Medical History PAST MEDICAL HISTORY: Depression, High Lipids, HTN Surgical History: Denies all surgeries COTTON ACREAGE MEASURER History: No Pertinent COTTON ACREAGE MEASURER History Family History Family History: Reviewed,noncontributory to illness, No family hx of Cancer, No family hx of DM, No family hx of Heart bere Social History Smoker: Non-Smoker Alcohol: Heavy Drugs: Methamphetamine Lives In: Home Constitutional: denies: chills, diaphoresis, fatigue, fever, malaise, sweats, weakness, others EENTM: denies: blurred vision, double vision, ear bleeding, ear discharge, ear drainage, ear pain, ear ringing, eye pain, eye redness, hearing loss, mouth pain, mouth swelling, nasal discharge, nose bleeding, nose congestion, nose pain, photophobia, tearing, throat pain, throat swelling, voice changes, others Respiratory: denies: cough, hemoptysis, orthopnea, SOB at rest, shortness of breath, SOB with excertion, stridor, wheezing, others Cardiovascular: denies: chest pain, dizzy spells, diaphoresis, Dyspnea on exertion, edema, irregular heart beat, left arm pain, lightheadedness, palp itations, PND, syncope, others Gastrointestinal: denies: abdomen distended, abdominal pain, blood streaked bowels, constipated, diarrhea, dysphagia, difficulty swallowing, hematemesis, melena, nausea, poor appetite, poor fluid intake, rectal bleeding, rectal pain, vomiting, others Genitourinary: denies: abnormal vagina bleeding, burning, dyspareunia, dysuria, flank pain, frequency, hematuria, incontinence, pain, , vagina discharge, urgency, others Neurological: reports: headache; denies: dizziness, fainting, left sided numbness, left sided weakness, numbness, paresthesia, pre-existing deficit, right sided numbness, right sided weakness, seizure, speech problems, tingling, tremors, weakness, others Musculoskeletal: denies: back pain, gout, joint pain, joint swelling, muscle pain, muscle stiffness, neck pain, others Integumetry: denies: bruises, change in color, change in hair/nails, dryness, laceration, lesions, lumps, rash, wounds, others Allergic/Immunocompromised: denies: Difficulty Healing, Frequent Infections, Hives, Itching, others Hematologic/Lymphatic: denies: anemia, blood clots, easy bleeding, easy bruising, swollen glands, others Endocrine: denies: excessive hunger, excessive sweating, excessive thirst, excessive urination, flushing, intolerance to cold, intolerance to heat, unexplained weight gain, unexplained weight loss, others Psychiatric: denies: anxiety, bipolar disorder, depression, hopeless, panic disorder, schizophrenia, sleepless, suicidal, others Physical Exam General Appearance: No Apparent Distress, Normal HEENT: Normal ENT Inspection, Pharynx Normal, TMs Normal Neck: Full Range of Motion, Non-Tender Respiratory: Lungs Clear, No Respiratory Distress, Normal Breath Sounds Cardiovascular: No Edema, No JVD, No Murmur, No Gallop, Normal Peripheral Pulses, Regular Rate/Rhythm Breast Exam: Deferred Gastrointestinal: No Organomegaly, Non Tender, No Pulsatile Mass, Normal Bowel Sounds, Soft Genitalia: Deferred Pelvic: Deferred Rectal: Deferred Extremities: Normal capillary refill, Normal inspection, Normal range of motion, Non-tender, No pedal edema Musculoskeletal : Apperance: Normal Neurologic: Alert, No Motor Deficits, Normal Affect, Normal Mood, No Sensory Deficits Cerebellar Function: Normal Reflexes: Normal Skin: Dry, Normal Color, Warm Lymphatic: No Adenopathy Was a procedure done? Was a procedure done?: No Differential Diagnosis (SZ) Headache: Post Lumber Puncture, Epidural Hemorrhage, Intracerebral Hemorrhage, Subarachnoid Hemorrhage, Subdural Hemorrhage, Meningitis X-Ray, Labs, Meds, VS Vital Signs Date Time Temp Pulse Resp B/P (MAP) Pulse Ox O2 Delivery O2 Flow Rate FiO2 12/10/24 17:28 99.0 103 18 100/64 (76) 95 99.0 X-Ray, Labs, Meds, VS Comment PATIENT WITH NO ANSWER CHECKED LOBBY, OUTSIDE AND TENT X 3 Time of 1ST Reevaluation: 18:15 Reevaluation 1ST: Unchanged Time of 2ND Reevaluation: 19:39 Reevaluation 2ND: Unchanged Patient Education/Counseling: Diagnosis, Treatment, Prognosis, Need For Follow Up Family Education/Counseling: No Family Present Departure 1 Departure Time of Disposition: 19:38 Impression: Primary Impression: Headache Qualified Codes: R51.9 - Headache, unspecified Disposition: 07 LEFT AWOL/ELOPED Condition: Stable Discharged With: Self Critical Care Note Critical Care Time?: No Stability Stability form required: CAITLYN Mast Dec 10, 2024 18:56
[2024-12-10] MEDS ORDERED: ACETAMINOPHEN 500 MG TAB or CAP PO ONE (19:00)
[2024-12-10] MEDS ORDERED: PROCHLORPERAZINE EDISYLATE 5 MG/ML 2ML VIAL IV ONE (19:00)
[2024-12-10] MEDS ORDERED: KETOROLAC TROMETH 30 MG/ML 1ML VIAL IV ONE (19:00)
[2024-12-10] MEDS ORDERED: SODIUM CHLORIDE 0.9% 1,000 ML IV ONE (19:00)
[2024-12-11] MEDS ORDERED: SODIUM CHLOR 0.9% PF (SALINE LOCK) 10ML VIAL/SYR IV SCH (06:00)
== END 2024-12-10 19:31 | disposition left against medical advice (07) ==
LOC: ER 16:47 → UNDODISIN 22:03 → UNDOADMIN 22:03 → OVERFLOW 22:03
DX: R51.9 Headache, unspecified (principal); E78.5 Hyperlipidemia, unspecified; I10 Essential (primary) hypertension; F32.A Depression, unspecified
CPT/HCPCS: G0378